=== PATIENT | female | born 1970 | race Caucasian/White ===

== ENCOUNTER 2017-01-15 19:43 | Emergency (ER) | payer MEDICARE, OTHER ==
[~2017-01-15 19:43] MED LIST: ABILIFY10 MG PO; ACETAMINOPHEN PO; ALPRAZOLAM PO; BACTRIM DS TABL1 TA1 PO; BUSPIRONE HCL30 MG PO; DEPAKOTE PO; EXCEDRIN MIGRAI1 TA2 PO; FLEXERIL10 MG PO; FOLIC ACID1 MG PO; HYDROXYZINE HCL10 MG PO; IBUPROFEN IB200 M1 PO; LITHIUM CARBON450 MG PO; LORTAB 7.5-5001 TAB PO; METFORMIN PO; METHOTREXATE2.5 MG; MORPHINE SULFAT30 M3 PO; OXYCODON-ACETA1 EAC1 PO; PAIN RELIEVER500 M4 PO; PERCOCET5/325 PO; PRAVASTATIN SOD40 MG PO; PREDNISONE PO; TOPIRAGEN100 MG PO; TOPIRAMATE100 MG; TOPIRAMATE50 MG PO; TRAZODONE PO; TYLENOL #3 PO; ULTRAM PO; VIT D PO; ZOLOFT100 MG PO
[2017-01-15 20:12] LABS: URINE SOURCE CLEAN CATCH
[2017-01-15 20:14] LABS: URINE APPEARANCE CLEAR; URINE BILIRUBIN NEG (NEG); URINE BLOOD TRACE-INTACT (NEG); URINE COLOR YELLOW; URINE GLUCOSE NEG (NORM); URINE KETONE NEG (NEG); URINE LEUKOCYTE ESTERASE TRACE (NEG); URINE NITRATE NEG (NEG); URINE PROTEIN TRACE (NEG); URINE SPECIFIC GRAVITY 1.025 (1.003-1.035); URINE UROBILINOGEN 0.2 MG/DL (NORM)
[2017-01-15 20:15] LABS: MICRO INDICATED? YES
[2017-01-15 20:16] LABS: CULTURE INDICATED? YES; URINE BACTERIA 1+ (NEG); URINE CRYSTALS CALCIUM OXALATE /[HPF]; URINE SQUAMOUS EPITHELIAL CELL OCCAS /[HPF]; URINE TRANSITIONAL EPI CELLS FEW /[HPF]; URINE WBC 0-2 /[HPF] (0-5)
[2017-01-15 20:17] LABS: URINE MUCUS PRESENT; URINE TRICHOMONAS PRESENT
== END 2017-01-15 20:56 | disposition home or self-care (01) ==
LOC: SED 19:43
PROVIDERS: Physician Assistant Medical
DX: A59.9 Trichomoniasis, unspecified (principal); G89.29 Other chronic pain; M54.5 Low back pain; F17.210 Nicotine dependence, cigarettes, uncomplicated; Z90.49 Acquired absence of other specified parts of digestive tract; Z90.710 Acquired absence of both cervix and uterus; Z98.890 Other specified postprocedural states; Z98.51 Tubal ligation status
CPT/HCPCS: 81003; 87086; 96372; 99283; J1170